=== PATIENT | female | born 1980 | race Caucasian/White ===

== ENCOUNTER 2020-07-11 13:41 | Outpatient (REF) | payer BC, SELFPAY ==
[2020-07-13 06:08] LABS: C. trachomatis RNA TMA NOT DETECTED (NOT DETECTED); N. gonorrhoeae RNA TMA NOT DETECTED (NOT DETECTED)
[2020-07-14 12:03] LABS: HPV mRNA E6/E7 rflx Not Detected (Not Detected)
== END 2020-07-11 13:42 | disposition home or self-care (01) ==
LOC: HO.LAB 13:41
PROVIDERS: PCP Internal Medicine; Visit Provider Advanced Practice Midwife
DX: Z12.4 Encounter for screening for malignant neoplasm of cervix (principal); Z20.2 Contact with and (suspected) exposure to infections with a predominantly sexual mode of transmission; I10 Essential (primary) hypertension
CPT/HCPCS: 87491; 87591; 87624; 88141; 88142

== ENCOUNTER → 2020-08-16 13:18 | Outpatient (BNVA) | payer BC, SELFPAY | PROVIDERS: Visit Provider Advanced Practice Midwife | DX: Z30.430 Encounter for insertion of intrauterine contraceptive device (principal) | CPT/HCPCS: 58300; 81025; J7298 ==

== ENCOUNTER 2020-11-16 15:45 | Outpatient (REF) | payer BC, SELFPAY ==
--- NOTE | ~2020-11-16 | MM_ITS ---
EXAMINATION: MM SCREENING DIGITAL BREAST TOMOSYNTHESIS, BILATERAL CLINICAL INFORMATION: Screening. Asymptomatic. No prior breast imaging. Age 40. No known family history breast cancer. The lifetime risk of breast cancer based on the Tyrer-Cuzick Model is 9%. COMPARISON: None (current study represents initial baseline exam). TECHNIQUE: Digital breast tomosynthesis is performed in both the craniocaudal and mediolateral oblique views along with computer-aided detection (CAD). Synthesized 2D images are generated from the tomosynthesis. FINDINGS: There are scattered areas of fibroglandular density (ACR BI-RADS breast composition Category b). The right breast is unremarkable. There is no mass or architectural abnormality. Neither breast shows abnormal calcifications. The axilla and skin contours are unremarkable. Left breast has 0.8 cm oval asymmetric density mid outer quadrant on CC tomography not clearly visualized on MLO view. There may be peripheral notched fatty hilus suggesting intramammary node. Patient will be recalled for additional imaging to further characterize. MM/MM tomosynthesis screening BI IMPRESSION: 1. Left: Oval asymmetric density mid outer quadrant under 1 cm, possibly intramammary node. 2. Right: No mammographic evidence of malignancy. ASSESSMENT: BI-RADS 0: Incomplete - Need Additional Imaging Evaluation RECOMMENDATION: 1. Additional views of the left breast (3-D spot CC, 3-D rolled CC). 2. Targeted ultrasound if warranted after review of the additional views. 3. Radiology department staff will contact the patient for additional imaging. This patient's information was entered into a reminder system with a target due date for their next mammogram.
== END 2020-11-16 15:46 | disposition home or self-care (01) ==
LOC: HO.MAMMO 15:45
PROVIDERS: Visit Provider Advanced Practice Midwife
DX: Z12.31 Encounter for screening mammogram for malignant neoplasm of breast (principal)
CPT/HCPCS: 77063; 77067

== ENCOUNTER 2020-11-25 10:47 | Outpatient (REF) | payer BC, SELFPAY ==
--- NOTE | ~2020-11-25 | US_ITS ---
EXAMINATION: US DIAGNOSTIC ULTRASOUND BREAST, LEFT CLINICAL INFORMATION: Density. COMPARISON: Mammography of same day and November 16, 2020. TECHNIQUE: Ultrasound of the breast is performed with real-time albarado scale imaging and color Doppler. FINDINGS: Targeted left breast ultrasound did not demonstrate any abnormal cystic or solid mass. No region of abnormal distal sound shadowing appreciated. Results are discussed with the patient at time of visit. US/US breast LT limited IMPRESSION: No mammographic or ultrasound evidence of malignancy. ASSESSMENT: BI-RADS 1: Negative RECOMMENDATION: Routine annual mammography screening due in 12 months. This patient's information was entered into a reminder system with a target due date for their next mammogram.
--- NOTE | ~2020-11-25 | MM_ITS ---
EXAMINATION: MM DIAGNOSTIC DIGITAL BREAST TOMOSYNTHESIS, LEFT CLINICAL INFORMATION: Left breast density laterally. COMPARISON: Mammography: 11/16/2020. TECHNIQUE: Digital breast tomosynthesis is performed. 2D images are generated from the tomosynthesis. The following views are obtained: Spot compression craniocaudal views also performed. Left craniocaudal rolled views also performed in full field projection. FINDINGS: There are scattered areas of fibroglandular density (ACR BI-RADS breast composition Category b). Additional views show no significant mass, architectural abnormality, or abnormal calcifications. Targeted left breast ultrasound did not demonstrate any abnormal cystic or solid mass. No region of abnormal distal sound shadowing appreciated. Results are discussed with the patient at time of visit. MM/MM tomosynthesis added views L IMPRESSION: No mammographic or ultrasound evidence of malignancy. ASSESSMENT: BI-RADS 1: Negative. RECOMMENDATION: Routine annual mammography screening due in 12 months. This patient's information was entered into a reminder system with a target due date for their next mammogram.
== END 2020-11-25 10:48 | disposition home or self-care (01) ==
LOC: HO.MAMMO 10:47
PROVIDERS: Visit Provider Advanced Practice Midwife
DX: R92.2 Inconclusive mammogram (principal)
CPT/HCPCS: 76642; 77061; 77065

== ENCOUNTER 2021-04-11 14:49 | Emergency (ER) | payer BC, SELFPAY ==
--- NOTE | 2021-04-11 | ECG_ITS ---
Test Reason : CHEST PAIN Blood Pressure : / mmHG Vent. Rate : 100 BPM Atrial Rate : 100 BPM P-R Int : 140 ms QRS Dur : 084 ms QT Int : 350 ms P-R-T Axes : 038 039 010 degrees QTc Int : 451 ms Normal sinus rhythm Normal ECG No previous ECGs available Referred By: Generic ED Physician Electronically Signed By:BRANDIE FLOWERS
[2021-04-11 14:58] VITALS: BP 168/103; PULSE 102; RESP 18; TEMP 36.9; O2SAT 98; BMI 46.5
[2021-04-11 15:27] LABS: MANUAL DIFF FLAG NO
[2021-04-11 15:30] LABS: Basophils Percent Auto 0.3 % (0-2); Eosinophils Absolute Auto 0.3 X10*3/uL (0.0-0.4); Eosinophils Percent Auto 3.6 % (0-4); Hematocrit 39.1 % (37-47); Hemoglobin 12.7 g/dl (12.0-16.0); Imm Gran Abs Auto 0.03 X10*3/uL (0.00-0.03); Imm Gran Pct Auto 0.3 % (0.0-0.4); Lymphocytes Percent Auto 23.7 % (20-40); Mean Corpuscular HGB Conc 32.5 g/dl (31.0-35.0); Mean Corpuscular Hemoglobin 26.8 pg (27.0-33.0); Mean Corpuscular Volume 82.7 fL (80-98); Mean Platelet Volume 10.1 fL (9.4-12.3); Monocytes Absolute Auto 0.5 X10*3/uL (0.1-1.2); Monocytes Percent Auto 5.6 % (2-11); Neutrophils Absolute Auto 5.7 X10*3/uL (2.0-8.3); Neutrophils Percent Auto 66.5 % (45-73); Platelet Count 300 X10*3/uL (160-400); Red Blood Count 4.73 X10*6/uL (4.20-5.50); Red Cell Distribution Width 13.8 % (11.0-16.0); White Blood Count 8.6 X10*3/uL (4.8-10.8)
[2021-04-11 15:43] LABS: Anion Gap 11 (12-20); Blood Urea Nitrogen 11 mg/dL (9-16); Calcium 9.6 mg/dL (8.4-10.2); Carbon Dioxide 29 mmol/L (22-29); Chloride 103 mmol/L (96-108); Creatinine Clr Calc Pharmacy 116.6; Estimated Glomerular Filt Rate > 60; Glucose Random 180 mg/dL (60-115); Potassium 4.3 mmol/L (3.3-5.1); Sodium 139 mmol/L (135-145)
[2021-04-11 15:46] LABS: COVID-19 Test Negative (Negative); IDNOW Serial# 08D9AD1C
[2021-04-11 15:49] LABS: Troponin-I High Sensitivity < 3.5 ng/L (<3.5-17.0)
--- NOTE | 2021-04-11 16:29 | ED_ITS ---
HPI - Chest Pain General Chief Complaint: Chest Pain Stated Complaint: chest pain Time Seen by Provider: 04/11/21 15:58 Source: patient and family History of Present Illness HPI narrative: Patient with a history of hypertension on lisinopril presents complaining of 2 episodes of chest pain. One was Saturday night the other was prior to arrival. Each episode lasted approximately 15 minutes and resolved spontaneously. She has no pain at the moment. She describes the pain as sharp in the anterior goes through to her back. She gets sweaty and slightly nauseous with it. It is worse with lying back flat. It improved spontaneously. No precipitating factors that she can think of No recent changes in activity medications or stressors. No recent illnesses or cough. She says she often misses doses of her lisinopril because she forgets but for the last week she has been consistent. There have been no missed doses: Side when the chest pain episodes She called her PCP office recommended she come to the emergency department. Cardiac risk factors of obesity and hypertension. She denies history of high cholesterol, diabetes, family history. No personal or family history of thromboembolic disease other than a paternal grandmother possibly. No recent travels injury surgeries or other thromboembolic risk factors Denies history of GERD or significant nonsteroidal anti-inflammatory use Related Data Home Medications Medication Instructions Recorded Confirmed lisinopril 20 1 tab PO DAILY 07/11/20 mg-hydrochlorothiazide 12.5 mg tablet Allergies Allergy/AdvReac Type Severity Reaction Status Date / Time No Known Allergies Allergy Verified 04/11/21 14:58 Review of Systems Constitutional: Constitutional: Denies fever(s) and Denies headache(s) ENT: Denies headache(s) Cardiovascular: Comments: Chest pain Respiratory: Comments: No significant dyspnea Gastrointestinal: Comments: No abdominal pain Musculoskeletal: Comments: No leg swelling or calf pain Neurologic: Denies headache(s) Comments: No weakness Psychiatric: Comments: No significant stressors or anxiety [facility] Past Medical History Medical History History of severe pre-eclampsia HTN (hypertension) Surgical History Hx of section Family History Family History Mother Epilepsy Father HTN (hypertension) Maternal Grandmother Alzheimer disease Social History Social History Alcohol intake: current Alcohol intake frequency: holidays/special occasions only Advance Directives: No Advance Directives Information Provided: No Patient : No Sexual orientation: Straight/Heterosexual Gender identity: Female Physical Exam Vital Signs: Vital Signs: Last Vital Signs Temp 98.4 F 04/11/21 14:58 Pulse 102 H 04/11/21 14:58 Resp 18 04/11/21 14:58 BP 168/103 H 04/11/21 14:58 Pulse Ox 98 04/11/21 14:58 Body Mass Index 46.5 Const: Other: Awake alert in no acute distress with stable vital signs Chest: Other: Nontender chest and thorax Resp: Other: Clear and equal bilaterally without wheezes rales or rhonchi Cardio: Other: Regular rate rhythm without murmurs rubs or gallops GI: Other: Soft nontender nondistended with normoactive bowel sounds Skin: Other: Warm pink and dry without rash Neuro: Other: Nonfocal Course Course Course Narrative: Chest pain Acute coronary syndrome Unstable angina Musculoskeletal chest pain Gastroesophageal reflux disease EKG normal sinus rhythm without ischemia Lab work is all normal including high sensitivity troponin Heart score is 1 She has no risk factors for thromboembolic disease Safe for discharge home to follow-up with primary care physician. MDM - Chest Pain Lab Data Result diagrams: 04/11/21 15:21 04/11/21 15:21 Labs: Lab Results 04/11/21 04/11/21 04/11/21 Range/Units 15:21 15:21 15:21 WBC 8.6 (4.8-10.8) X10*3/uL RBC 4.73 (4.20-5.50) X10*6/uL Hgb 12.7 (12.0-16.0) g/dl Hct 39.1 (37-47) % MCV 82.7 (80-98) fL MCH 26.8 L (27.0-33.0) pg MCHC 32.5 (31.0-35.0) g/dl RDW 13.8 (11.0-16.0) % Plt Count 300 (160-400) X10*3/uL MPV 10.1 (9.4-12.3) fL Immature Gran % (Auto) 0.3 (0.0-0.4) % Neut % (Auto) 66.5 (45-73) % Lymph % (Auto) 23.7 (20-40) % Catron % (Auto) 5.6 (2-11) % Eos % (Auto) 3.6 (0-4) % Baso % (Auto) 0.3 (0-2) % Lymph # (Auto) 2.0 (1.2-4.9) X10*3/uL Catron # (Auto) 0.5 (0.1-1.2) X10*3/uL Eos # (Auto) 0.3 (0.0-0.4) X10*3/uL Baso # (Auto) 0.0 (0.0-0.2) X10*3/uL Abs Immat Gran (auto) 0.03 (0.00-0.03) X10*3/uL Absolute Neuts (auto) 5.7 (2.0-8.3) X10*3/uL Absolute Nucleated RBC 0.000 (0.0-0.012) X10*3/uL Nucleated RBC % (auto) 0.0 (0.0-0.2) /100WBC Sodium 139 (135-145) mmol/L Potassium 4.3 (3.3-5.1) mmol/L Chloride 103 (96-108) mmol/L Carbon Dioxide 29 (22-29) mmol/L Anion Gap 11 L (12-20) BUN 11 (9-16) mg/dL Creatinine 0.86 (0.5-1.4) mg/dL Estim Creat Clear Calc 116.6 Estimated GFR > 60 Random Glucose 180 H (60-115) mg/dL Calcium 9.6 (8.4-10.2) mg/dL Troponin I High Sens < 3.5 (<3.5-17.0) ng/L COVID-19 ([facility]) (Negative) COVID-19 Clin Com 04/11/21 Range/Units 15:22 WBC (4.8-10.8) X10*3/uL RBC (4.20-5.50) X10*6/uL Hgb (12.0-16.0) g/dl Hct (37-47) % MCV (80-98) fL MCH (27.0-33.0) pg MCHC (31.0-35.0) g/dl RDW (11.0-16.0) % Plt Count (160-400) X10*3/uL MPV (9.4-12.3) fL Immature Gran % (Auto) (0.0-0.4) % Neut % (Auto) (45-73) % Lymph % (Auto) (20-40) % Catron % (Auto) (2-11) % Eos % (Auto) (0-4) % Baso % (Auto) (0-2) % Lymph # (Auto) (1.2-4.9) X10*3/uL Catron # (Auto) (0.1-1.2) X10*3/uL Eos # (Auto) (0.0-0.4) X10*3/uL Baso # (Auto) (0.0-0.2) X10*3/uL Abs Immat Gran (auto) (0.00-0.03) X10*3/uL Absolute Neuts (auto) (2.0-8.3) X10*3/uL Absolute Nucleated RBC (0.0-0.012) X10*3/uL Nucleated RBC % (auto) (0.0-0.2) /100WBC Sodium (135-145) mmol/L Potassium (3.3-5.1) mmol/L Chloride (96-108) mmol/L Carbon Dioxide (22-29) mmol/L Anion Gap (12-20) BUN (9-16) mg/dL Creatinine (0.5-1.4) mg/dL Estim Creat Clear Calc Estimated GFR Random Glucose (60-115) mg/dL Calcium (8.4-10.2) mg/dL Troponin I High Sens (<3.5-17.0) ng/L COVID-19 ([facility]) Negative (Negative) COVID-19 Clin Com See Note Scores Heart Score History: -0- slightly suspicious ECG: -0- normal Age: -0- < or = 45 Risk factory: -1- 1 or 2 risk factors Troponin: -0- < or = normal limit Score: 1 Risk: 1.7% Discharge Plan Discharge Clinical Impression: Atypical chest pain Hypertension Qualifiers: Hypertension type: primary hypertension Qualified Code(s): I10 - Essential (primary) hypertension Patient Disposition: Home, Self-Care Instructions: Chest Wall Pain (ED) Additional Instructions: Call your primary care physician for follow-up Also be sure to take your lisinopril daily. Take your blood pressure twice daily and record the readings and bring them with due to the next primary care visit Prescriptions: No Action lisinopril-hydrochlorothiazide 20-12.5 mg tablet 1 tab PO DAILY RF: 0
[2021-04-11 16:56] VITALS: BP 148/78; PULSE 78; RESP 14
== END 2021-04-11 17:00 | disposition home or self-care (01) ==
PROVIDERS: Emergency Provider Emergency Medicine; PCP Internal Medicine
DX: R07.89 Other chest pain (principal); I10 Essential (primary) hypertension; Z79.899 Other long term (current) drug therapy; Z20.822 Contact with and (suspected) exposure to COVID-19
CPT/HCPCS: 36415; 80048; 84484; 85025; 87635; 93005; 99283; 99285

== ENCOUNTER 2021-07-03 10:22 | Outpatient (REF) | payer BC, SELFPAY ==
[2021-07-03 10:24] LABS: MANUAL DIFF FLAG NO
[2021-07-03 11:18] LABS: Basophils Percent Auto 0.4 % (0-2); Eosinophils Absolute Auto 0.2 X10*3/uL (0.0-0.4); Eosinophils Percent Auto 2.7 % (0-4); Hematocrit 41.4 % (37.0-47.0); Hemoglobin 13.3 g/dl (12.0-16.0); Imm Gran Abs Auto 0.03 X10*3/uL (0.00-0.03); Imm Gran Pct Auto 0.4 % (0.0-0.4); Lymphocytes Absolute Auto 2.3 X10*3/uL (1.2-4.9); Lymphocytes Percent Auto 29.2 % (20-40); Mean Corpuscular HGB Conc 32.1 g/dl (31.0-35.0); Mean Corpuscular Volume 84.1 fL (80.0-98.0); Mean Platelet Volume 10.4 fL (9.4-12.3); Monocytes Absolute Auto 0.4 X10*3/uL (0.1-1.2); Monocytes Percent Auto 5.6 % (2-11); Neutrophils Absolute Auto 4.8 x10*3/uL (2.0-8.3); Neutrophils Percent Auto 61.7 % (45-73); Platelet Count 312 X10*3/uL (160-400); Red Blood Count 4.92 X10*6/uL (4.20-5.50); White Blood Count 7.7 X10*3/uL (4.8-10.8)
[2021-07-03 11:23] LABS: Appearance Urine HAZY; Color Urine YELLOW; Glucose Urine UA NEG (NEG); Leukocyte Esterase Urine NEG (NEG); Nitrite Urine NEG (NEG); Specific Gravity - Urine >= 1.030 (1.005-1.025); Urine Blood NEG (NEG); Urine Ketones NEG (NEG); Urine Protein NEG (NEG-TRACE)
[2021-07-03 11:31] LABS: Alanine Aminotransferase 29 U/L (0-31); Alkaline Phosphatase 56 U/L (39-117); Anion Gap 11 (12-20); Aspartate Amino Transferase 18 U/L (5-31); Bilirubin Total 0.6 mg/dL (0.0-1.0); Blood Urea Nitrogen 11 mg/dL (9-16); Calcium 9.3 mg/dL (8.4-10.2); Carbon Dioxide 28 mmol/L (22-29); Chloride 105 mmol/L (96-108); Cholesterol 172 mg/dL; Estimated Glomerular Filt Rate > 60; Glucose Fasting 123 mg/dL (60-99); HDL Cholesterol 32 mg/dL; LDL Cholesterol Calculated 118 mg/dl; Potassium 4.6 mmol/L (3.3-5.1); Sodium 139 mmol/L (135-145); Total Protein 6.5 g/dL (6.5-8.0); Triglycerides 114 mg/dL
[2021-07-03 11:32] LABS: Estimated Average Glucose 143 mg/dL; Hemoglobin A1c % 6.6 %
[2021-07-03 11:52] LABS: Creatinine Urine 166.27 mg/dL; Microalbum/Creatinine Ratio Ur 13.2 ug/mg cr
== END 2021-07-03 10:23 | disposition home or self-care (01) ==
LOC: HO.LNP 10:22
PROVIDERS: PCP Internal Medicine; Visit Provider Internal Medicine
DX: Z00.00 Encounter for general adult medical examination without abnormal findings (principal); I10 Essential (primary) hypertension; R73.09 Other abnormal glucose
CPT/HCPCS: 80053; 80061; 81003; 82043; 83036; 85025

== ENCOUNTER 2022-07-25 13:10 | Emergency (ER) | payer BC, SELFPAY ==
--- NOTE | ~2022-07-25 | XR_ITS ---
EXAMINATION: XR CHEST CLINICAL INFORMATION: Shortness of breath, cough, Covid COMPARISON: None TECHNIQUE: 2 views of the chest were obtained. FINDINGS: The lungs are clear. No airspace consolidation, pleural effusion, or pneumothorax. The cardiomediastinal silhouette is within normal limits. No acute osseous injury. XR/XR chest 2V IMPRESSION: No acute pulmonary disease.
[2022-07-25 13:26] VITALS: BP 218/109; PULSE 115; RESP 19; TEMP 36.7; O2SAT 98; BMI 46.5
--- NOTE | 2022-07-25 13:27 | ED_ITS ---
HPI - SOB/Dyspnea General Chief Complaint: General Medical <JOE Jorge - Last Filed: 07/25/22 15:53> Stated Complaint: covid symptoms <JOE Jorge - Last Filed: 07/25/22 15:53> Time Seen by Provider: 07/25/22 14:49 <JOE Jorge - Last Filed: 07/25/22 15:53> Source: patient <JOE Saenz Last Filed: 07/25/22 16:24> Mode of arrival: ambulatory <JOE Saenz - Last Filed: 07/25/22 16:24> Limitations: no limitations <JOE Saenz Last Filed: 07/25/22 16:24> History of Present Illness HPI Narrative: Patient is a 42 year old assigned female at with a history of childhood asthma and recent COVID-19 diagnosis presenting to the emergency department today with a cough. Patient states that she was diagnosed with COVID- 19 this morning and she has been having a continued cough. Patient denies any dizziness, lightheadedness, abdominal pain, nausea, vomiting, fever, chills, blurry vision, double vision, loss of vision, chest pain, difficulty breathing, shortness of breath, back pain, night sweats, pain with urination, increased urinary frequency, increased urinary urgency, blood in her urine or stool, syncope or a near syncopal episode, recent trauma or falls, bowel incontinence, bladder incontinence, bowel retention, bladder retention, or any other complaints at this time. <JOE Saenz - Last Filed: 07/25/22 16:24> MD elicited complaint: cough <JOE Saenz - Last Filed: 07/25/22 16:24> Context: recent illness <JOE Saenz Last Filed: 07/25/22 16:24> Severity: mild <JOE Saenz Last Filed: 07/25/22 16:24> Exacerbating factors: nothing <JOE Saenz Last Filed: 07/25/22 16:24> Relieving factors: nothing <JOE Saenz Last Filed: 07/25/22 16:24> Known history of: asthma <JOE Saenz Last Filed: 07/25/22 16:24> Associated symptoms: denies other symptoms <JOE Saenz - Last Filed: 07/25/22 16:24> Treatment prior to arrival: none <JOE Saenz - Last Filed: 07/25/22 16:24> Related Data Home oxygen amount: none <JOE Saenz - Last Filed: 07/25/22 16:24> Home Medications: Home Medications Medication Instructions Recorded Confirmed lisinopril 20 1 tab PO DAILY 07/11/20 mg-hydrochlorothiazide 12.5 mg tablet Previous Rx's Medication Instructions Recorded albuterol sulfate 90 mcg/actuation 1 inh inhalation QID #6.7 grams 07/25/22 aerosol inhaler benzonatate 100 mg capsule 100 mg PO BID PRN cough 7 days #14 07/25/22 caps prednisone 20 mg tablet 20 mg PO DAILY 7 days #7 tabs 07/25/22 <JOE Jorge - Last Filed: 07/25/22 15:53> Allergies/Adverse Reactions: Allergies Allergy/AdvReac Type Severity Reaction Status Date / Time No Known Allergies Allergy Verified 07/25/22 13:29 <JOE Jorge - Last Filed: 07/25/22 15:53> Review of Systems Constitutional: Constitutional: Reports no additional constitutional complaints, Denies chills, Denies fever(s) and Denies night sweats <JOE Saenz - Last Filed: 07/25/22 16:24> Eyes: Eyes: Reports no additional eye complaints, Denies blurry vision, Denies change in vision, Denies diplopia, Denies eye discharge, Denies loss of vision and Denies eye pain <JOE Saenz - Last Filed: 07/25/22 16:24> ENT: Denies dizziness <JOE Saenz - Last Filed: 07/25/22 16:24> Cardiovascular: Cardiovascular: Reports no additional cardiovascular complaints, Denies chest pain, Denies lightheadedness, Denies Loss of Consciousness and Denies dyspnea <JOE Saenz Last Filed: 07/25/22 16:24> Respiratory: Respiratory: Reports no additional respiratory complaints, Reports cough and Denies dyspnea <JOE Saenz - Last Filed: 07/25/22 16:24> Gastrointestinal: Gastrointestinal: Reports no additional gastrointestinal complaints, Denies abdominal pain, Denies melena, Denies hematochezia, Denies change in bowel habits and Denies change in stool character <JOE Saenz - Last Filed: 07/25/22 16:24> Genitourinary: Genitourinary: Denies hematuria, Denies urinary frequency, Denies dysuria, Denies urinary incontinence, Denies urinary hesitancy and Denies urinary urgency <JOE Saenz - Last Filed: 07/25/22 16:24> Musculoskeletal: Musculoskeletal: Reports no additional musculoskeletal complaints, Denies numbness and Denies tingling <JOE Saenz - Last Filed: 07/25/22 16:24> Neurologic: Denies dizziness, Denies loss of vision, Denies numbness and Denies tingling <JOE Saenz - Last Filed: 07/25/22 16:24> Psychiatric: Psychiatric: Reports no additional psychiatric complaints <JOE Saenz - Last Filed: 07/25/22 16:24> Endocrine: Endocrine: Reports no additional endocrine complaints <JOE Saenz - Last Filed: 07/25/22 16:24> Hematologic/Lymphatic: Hematologic/Lymphatic: Reports no additional hematologic/lymphatic complaints <JOE Saenz - Last Filed: 07/25/22 16:24> Allergic/Immunologic: Allergic/Immunologic: Reports no additional allergic/immunologic complaints <JOE Saenz - Last Filed: 07/25/22 16:24> PMF Past Medical History Attestation statement: The following information was validated with the patient. <JOE Saenz - Last Filed: 07/25/22 16:24> Source: old records reviewed and nursing notes reviewed <JOE Saenz - Last Filed: 07/25/22 16:24> Medical History: Medical History History of severe pre-eclampsia HTN (hypertension) <JOE Jorge - Last Filed: 07/25/22 15:53> Surgical History: Surgical History Hx of section <JOE Jorge - Last Filed: 07/25/22 15:53> Family History Family History: Family History Mother Epilepsy Father HTN (hypertension) Maternal Grandmother Alzheimer disease <JOE Jorge - Last Filed: 07/25/22 15:53> Social History Social History: Social History Alcohol intake: current Alcohol intake frequency: a few times a month Smoked in Last 30 Days: No Advance Directives: No Patient : No Sexual orientation: Straight/Heterosexual Gender identity: Female <JOE Jorge - Last Filed: 07/25/22 15:53> Physical Exam Vital Signs: Vital Signs: Last Vital Signs Temp 98.1 F 07/25/22 13:26 Pulse 115 H 07/25/22 13:26 Resp 19 07/25/22 13:26 BP 218/109 H 07/25/22 13:26 Pulse Ox 98 07/25/22 13:26 O2 Del Method 07/25/22 13:26 BMI result Body Mass Index 46.5 <JOE Jorge - Last Filed: 07/25/22 15:53> Vital Signs: Last Vital Signs Temp 98.1 F 07/25/22 13:26 Pulse 115 H 07/25/22 13:26 Resp 19 07/25/22 13:26 BP 218/109 H 07/25/22 13:26 Pulse Ox 98 07/25/22 13:26 O2 Del Method 07/25/22 13:26 BMI result Body Mass Index 46.5 <JOE Saenz - Last Filed: 07/25/22 16:24> Const: General: cooperative, no acute distress, alert and awake <JOE Saenz - Last Filed: 07/25/22 16:24> Nutritional Appearance: well nourished <JOE Saenz - Last Filed: 07/25/22 16:24> Orientation/consciousness: patient oriented x3 <JOE Saenz - Last Filed: 07/25/22 16:24> Limitations: no limitations <JOE Saenz - Last Filed: 07/25/22 16:24> HEENT: Head: Yes normal to inspection and Yes atraumatic <Anali Nugentavelina PA - Last Filed: 07/25/22 16:24> Ears: hearing grossly normal bilaterally and external ears normal <Anali Nugentavelina PA - Last Filed: 07/25/22 16:24> General nose exam: Normal external nose present, no nasal discharge noted and no epistaxis <Anali Nugentavelina PA - Last Filed: 07/25/22 16:24> Face and sinus: Yes normal facial exam, No abrasion and No laceration <Anali Nugentavelina PA - Last Filed: 07/25/22 16:24> Mouth: Normal oral and palatal mucosa present, no drooling and no muffled voice <Analibright Nugentavelina PA - Last Filed: 07/25/22 16:24> Eyes: General: appearance normal, both eyes and all related structures <Analibright Nugentavelina ME - Last Filed: 07/25/22 16:24> Periorbital: periorbital findings normal <Analibright Nugentavelina PA - Last Filed: 07/25/22 16:24> Eyelids: Yes eyelids normal <Anali Nugentavelina PA - Last Filed: 07/25/22 16:24> Conjunctivae: conjunctivae normal <Analibright Nugentavelina PA - Last Filed: 07/25/22 16:24> Pupils: Equal, round and reactive pupils present <Anali Nugentavelina PA - Last Filed: 07/25/22 16:24> EOM: EOMs intact bilaterally <Anali Salcido ME - Last Filed: 07/25/22 16:24> Neck: Neck: Yes normal visual inspection, Yes full ROM and Yes no lymphadenopathy <Anali Nugentavelina PA - Last Filed: 07/25/22 16:24> Chest: Chest palpation & inspection: normal inspection of the chest <Anali Salcido PA - Last Filed: 07/25/22 16:24> Resp: Effort & Inspection: normal respiratory effort and able to speak in complete sentences <Anali Salcido PA - Last Filed: 07/25/22 16:24> Auscultation: clear to auscultation bilaterally <Anali Salcido PA - Last Filed: 07/25/22 16:24> Cardio: Rate: regular rate <Anali Salcido PA - Last Filed: 07/25/22 16:24> Rhythm: regular rhythm <Anali Salcido PA - Last Filed: 07/25/22 16:24> GI: Inspection: Yes normal to inspection <Anali Salcido PA - Last Filed: 07/25/22 16:24> Palpation (GI): Soft to palpation, not firm, nontender, no guarding and not rigid <Anali Salcido PA - Last Filed: 07/25/22 16:24> Neuro: General: patient oriented x3 and moves all extremities <Anali Salcido PA - Last Filed: 07/25/22 16:24> Cranial nerves: Yes Equal, round and reactive pupils present <Anlai Salcido PA - Last Filed: 07/25/22 16:24> Cognition (Neuro): normal cognition <Anali Salcido PA - Last Filed: 07/25/22 16:24> Motor exam (neuro): 5/5 motor strength present throughout <Anali Salcido PA - Last Filed: 07/25/22 16:24> Sensory Exam: Normal double simultaneous stimulation for sensation <Anali Salcido PA - Last Filed: 07/25/22 16:24> Coordination: [id number] test normal <Anali Salcido PA - Last Filed: 07/25/22 16:24> Extrem: General: Yes normal to inspection, Yes full ROM and Yes capillary refill normal <Anali Nugentavelina PA - Last Filed: 07/25/22 16:24> Psych: Appearance: grossly normal <Anali Nugentavelina PA - Last Filed: 07/25/22 16:24> Mental Status: mental status grossly normal <Anali SalcidoJOE - Last Filed: 07/25/22 16:24> Affect: normal affect <Anali NugentJOE quan - Last Filed: 07/25/22 16:24> Attitude: cooperative <Anali Nugentavelina PA - Last Filed: 07/25/22 16:24> Thought process: Normal thought process present <Analibright NugentJOE quan - Last Filed: 07/25/22 16:24> Thought content: Normal thought content present <Anali JOE Salcido - Last Filed: 07/25/22 16:24> Insight: Good insight present (Psych) <JOE Saenz Last Filed: 07/25/22 16:24> Course Course Course Narrative: RME - 42 yo female with history of HTN (noncompliant with meds) presents to the ER with worsening cough and SOB, tested positive for COVID today. Called PCP for SOB and told to come to the ER. Back and chest pain due to coughing. SpO2 98% in triage but tachycardic 110s and hypertensive 210/100s. CXR, EKG and labs ordered. <JOE Jorge - Last Filed: 07/25/22 15:53> Medical Decision Making Medical Decision Making MDM Narrative: Patient is a 42 year old assigned female at with a history of childhood asthma presenting to the emergency department today with a cough and COVID-19 diagnosis. Patient's physical exam was unremarkable. Patient's blood work was unremarkable. Patient's EKG was unremarkable. Patient's chest x-ray showed no acute process. Patient's blood pressure was elevated however, the patient does not have any HTN symptoms. I recommended the patient keep a blood pressure diary and follow up with her PCP. I explained my physical exam findings as well as all test results to the patient. I answered all questions asked by the patient. I stressed the importance of the patient taking her medication as prescribed. I stressed the importance of the patient following up with her primary care provider. I stressed the importance of the patient returning to the emergency department immediately if her symptoms were to worsen or if she were to develop any dizziness, shortness of breath, difficulty breathing, chest pain, blurry vision, loss of vision, nausea, vomiting, abdominal pain, fever, chills, back pain, or any other complaints. Patient verbalized agreement and understanding with this treatment plan and discharge. <JOE Saenz Last Filed: 07/25/22 16:24> Differential Diagnosis Differential Diagnoses: The differential diagnosis associated with the presentation includes <JOE Saenz Last Filed: 07/25/22 16:24> COVID-19, cough <JOE Saenz Last Filed: 07/25/22 16:24> Lab Data MDM Lab Attestation statement: I reviewed the patient's lab results. <JOE Saenz Filed: 07/25/22 16:24> Result Diagrams: 07/25/22 13:41 07/25/22 13:41 <JOE Jorge - Last Filed: 07/25/22 15:53> Labs: Lab Results 07/25/22 07/25/22 07/25/22 Range/Units 13:41 13:41 13:41 WBC 6.5 (4.8-10.8) X10*3/uL RBC 4.90 (4.20-5.50) X10*6/uL Hgb 13.2 (12.0-16.0) g/dl Hct 39.4 (37.0-47.0) % MCV 80.4 (80.0-98.0) fL MCH 26.9 L (27.0-33.0) pg MCHC 33.5 (31.0-35.0) g/dl RDW 13.5 (11.0-16.0) % Plt Count 279 (160-400) X10*3/uL MPV 9.5 (9.4-12.3) fL Immature Gran % (Auto) 0.2 (0.0-0.4) % Neut % (Auto) 76.6 H (45-73) % Lymph % (Auto) 13.8 L (20-40) % [place] % (Auto) 8.1 (2-11) % Eos % (Auto) 0.8 (0-4) % Baso % (Auto) 0.5 (0-2) % Lymph # (Auto) 0.9 L (1.2-4.9) X10*3/uL [place] # (Auto) 0.5 (0.1-1.2) X10*3/uL Eos # (Auto) 0.1 (0.0-0.4) X10*3/uL Baso # (Auto) 0.0 (0.0-0.2) X10*3/uL Abs Immat Gran (auto) 0.01 (0.00-0.03) X10*3/uL Absolute Neuts (auto) 5.0 (2.0-8.3) x10*3/uL Absolute Nucleated RBC 0.000 (0.0-0.012) X10*3/uL Nucleated RBC % (auto) 0.0 (0.0-0.2) /100WBC PT 11.9 (10.0-13.1) SEC INR 1.0 (0.9-1.1) APTT 30.8 (26.0-36.4) SEC Sodium 138 (135-145) mmol/L Potassium 4.3 (3.3-5.1) mmol/L Chloride 103 (96-108) mmol/L Carbon Dioxide 26 (22-29) mmol/L Anion Gap 13 (12-20) BUN 7 L (9-16) mg/dL Creatinine 0.77 (0.5-1.4) mg/dL Estim Creat Clear Calc 127.7 Estimated GFR > 60 Random Glucose 133 H (60-115) mg/dL Calcium 9.4 (8.4-10.2) mg/dL Magnesium 1.8 (1.6-2.6) mg/dL Total Bilirubin 0.7 (0.0-1.0) mg/dL Direct Bilirubin 0.2 (0.0-0.5) mg/dL AST 34 H (5-31) U/L ALT 42 H (0-31) U/L Alkaline Phosphatase 73 (39-117) U/L Troponin I High Sens (<3.5-17.0) ng/L C-Reactive Protein 3.86 H (< or = 0.50) mg/dL B-Natriuretic Peptide (<100) pg/mL Total Protein 7.1 (6.5-8.0) g/dL Albumin 4.3 (3.5-5.0) g/dL COVID-19 ([facility]) (Negative) COVID-19 Clin Com 07/25/22 07/25/22 07/25/22 Range/Units 13:41 13:41 13:41 WBC (4.8-10.8) X10*3/uL RBC (4.20-5.50) X10*6/uL Hgb (12.0-16.0) g/dl Hct (37.0-47.0) % MCV (80.0-98.0) fL MCH (27.0-33.0) pg MCHC (31.0-35.0) g/dl RDW (11.0-16.0) % Plt Count (160-400) X10*3/uL MPV (9.4-12.3) fL Immature Gran % (Auto) (0.0-0.4) % Neut % (Auto) (45-73) % Lymph % (Auto) (20-40) % [place] % (Auto) (2-11) % Eos % (Auto) (0-4) % Baso % (Auto) (0-2) % Lymph # (Auto) (1.2-4.9) X10*3/uL [place] # (Auto) (0.1-1.2) X10*3/uL Eos # (Auto) (0.0-0.4) X10*3/uL Baso # (Auto) (0.0-0.2) X10*3/uL Abs Immat Gran (auto) (0.00-0.03) X10*3/uL Absolute Neuts (auto) (2.0-8.3) x10*3/uL Absolute Nucleated RBC (0.0-0.012) X10*3/uL Nucleated RBC % (auto) (0.0-0.2) /100WBC PT (10.0-13.1) SEC INR (0.9-1.1) APTT (26.0-36.4) SEC Sodium (135-145) mmol/L Potassium (3.3-5.1) mmol/L Chloride (96-108) mmol/L Carbon Dioxide (22-29) mmol/L Anion Gap (12-20) BUN (9-16) mg/dL Creatinine (0.5-1.4) mg/dL Estim Creat Clear Calc Estimated GFR Random Glucose (60-115) mg/dL Calcium (8.4-10.2) mg/dL Magnesium (1.6-2.6) mg/dL Total Bilirubin (0.0-1.0) mg/dL Direct Bilirubin (0.0-0.5) mg/dL AST (5-31) U/L ALT (0-31) U/L Alkaline Phosphatase (39-117) U/L Troponin I High Sens < 3.5 (<3.5-17.0) ng/L C-Reactive Protein (< or = 0.50) mg/dL B-Natriuretic Peptide < 10 (<100) pg/mL Total Protein (6.5-8.0) g/dL Albumin (3.5-5.0) g/dL COVID-19 ([facility]) Positive A (Negative) COVID-19 Clin Com See Note <JOE Jorge - Last Filed: 07/25/22 15:53> Lab Results 07/25/22 07/25/22 07/25/22 Range/Units 13:41 13:41 13:41 WBC 6.5 (4.8-10.8) X10*3/uL RBC 4.90 (4.20-5.50) X10*6/uL Hgb 13.2 (12.0-16.0) g/dl Hct 39.4 (37.0-47.0) % MCV 80.4 (80.0-98.0) fL MCH 26.9 L (27.0-33.0) pg MCHC 33.5 (31.0-35.0) g/dl RDW 13.5 (11.0-16.0) % Plt Count 279 (160-400) X10*3/uL MPV 9.5 (9.4-12.3) fL Immature Gran % (Auto) 0.2 (0.0-0.4) % Neut % (Auto) 76.6 H (45-73) % Lymph % (Auto) 13.8 L (20-40) % [place] % (Auto) 8.1 (2-11) % Eos % (Auto) 0.8 (0-4) % Baso % (Auto) 0.5 (0-2) % Lymph # (Auto) 0.9 L (1.2-4.9) X10*3/uL [place] # (Auto) 0.5 (0.1-1.2) X10*3/uL Eos # (Auto) 0.1 (0.0-0.4) X10*3/uL Baso # (Auto) 0.0 (0.0-0.2) X10*3/uL Abs Immat Gran (auto) 0.01 (0.00-0.03) X10*3/uL Absolute Neuts (auto) 5.0 (2.0-8.3) x10*3/uL Absolute Nucleated RBC 0.000 (0.0-0.012) X10*3/uL Nucleated RBC % (auto) 0.0 (0.0-0.2) /100WBC PT 11.9 (10.0-13.1) SEC INR 1.0 (0.9-1.1) APTT 30.8 (26.0-36.4) SEC Sodium 138 (135-145) mmol/L Potassium 4.3 (3.3-5.1) mmol/L Chloride 103 (96-108) mmol/L Carbon Dioxide 26 (22-29) mmol/L Anion Gap 13 (12-20) BUN 7 L (9-16) mg/dL Creatinine 0.77 (0.5-1.4) mg/dL Estim Creat Clear Calc 127.7 Estimated GFR > 60 Random Glucose 133 H (60-115) mg/dL Calcium 9.4 (8.4-10.2) mg/dL Magnesium 1.8 (1.6-2.6) mg/dL Total Bilirubin 0.7 (0.0-1.0) mg/dL Direct Bilirubin 0.2 (0.0-0.5) mg/dL AST 34 H (5-31) U/L ALT 42 H (0-31) U/L Alkaline Phosphatase 73 (39-117) U/L Troponin I High Sens (<3.5-17.0) ng/L C-Reactive Protein 3.86 H (< or = 0.50) mg/dL B-Natriuretic Peptide (<100) pg/mL Total Protein 7.1 (6.5-8.0) g/dL Albumin 4.3 (3.5-5.0) g/dL COVID-19 ([facility]) (Negative) COVID-19 Clin Com 07/25/22 07/25/22 07/25/22 Range/Units 13:41 13:41 13:41 WBC (4.8-10.8) X10*3/uL RBC (4.20-5.50) X10*6/uL Hgb (12.0-16.0) g/dl Hct (37.0-47.0) % MCV (80.0-98.0) fL MCH (27.0-33.0) pg MCHC (31.0-35.0) g/dl RDW (11.0-16.0) % Plt Count (160-400) X10*3/uL MPV (9.4-12.3) fL Immature Gran % (Auto) (0.0-0.4) % Neut % (Auto) (45-73) % Lymph % (Auto) (20-40) % [place] % (Auto) (2-11) % Eos % (Auto) (0-4) % Baso % (Auto) (0-2) % Lymph # (Auto) (1.2-4.9) X10*3/uL [place] # (Auto) (0.1-1.2) X10*3/uL Eos # (Auto) (0.0-0.4) X10*3/uL Baso # (Auto) (0.0-0.2) X10*3/uL Abs Immat Gran (auto) (0.00-0.03) X10*3/uL Absolute Neuts (auto) (2.0-8.3) x10*3/uL Absolute Nucleated RBC (0.0-0.012) X10*3/uL Nucleated RBC % (auto) (0.0-0.2) /100WBC PT (10.0-13.1) SEC INR (0.9-1.1) APTT (26.0-36.4) SEC Sodium (135-145) mmol/L Potassium (3.3-5.1) mmol/L Chloride (96-108) mmol/L Carbon Dioxide (22-29) mmol/L Anion Gap (12-20) BUN (9-16) mg/dL Creatinine (0.5-1.4) mg/dL Estim Creat Clear Calc Estimated GFR Random Glucose (60-115) mg/dL Calcium (8.4-10.2) mg/dL Magnesium (1.6-2.6) mg/dL Total Bilirubin (0.0-1.0) mg/dL Direct Bilirubin (0.0-0.5) mg/dL AST (5-31) U/L ALT (0-31) U/L Alkaline Phosphatase (39-117) U/L Troponin I High Sens < 3.5 (<3.5-17.0) ng/L C-Reactive Protein (< or = 0.50) mg/dL B-Natriuretic Peptide < 10 (<100) pg/mL Total Protein (6.5-8.0) g/dL Albumin (3.5-5.0) g/dL COVID-19 ([facility]) Positive A (Negative) COVID-19 Clin Com See Note <JOE Saenz Last Filed: 07/25/22 16:24> Independent Interpretation I performed an independent interpretation of an: EKG <JOE Saenz Last Filed: 07/25/22 16:24> Interpretation: Vent. Rate: 113 BPM ? ? Atrial Rate: 113 BPM P-R Int: 144 ms? QRS Dur: 082 ms QT Int: 336 ms ? ? ? P-R-T Axes: 036 038 010 degrees QTc Int: 460 ms ? Sinus tachycardia Otherwise normal ECG When compared with ECG of 11-APR-2021 15:17, No significant change was found DD/ 1332 <JOE Saenz Last Filed: 07/25/22 16:24> Radiology Impression Discussion of test interpretation with radiology: I have reviewed the radiologist's reading. <JOE Saenz Last Filed: 07/25/22 16:24> Radiologist Impression: My interpretation is in agreement with the radiologist's impression of this imaging study. EXAMINATION: XR CHEST CLINICAL INFORMATION: Shortness of breath, cough, Covid COMPARISON: None TECHNIQUE: 2 views of the chest were obtained. FINDINGS: The lungs are clear. No airspace consolidation, pleural effusion, or pneumothorax. The cardiomediastinal silhouette is within normal limits. No acute osseous injury. XR/XR chest 2V IMPRESSION: No acute pulmonary disease. Dictated By: Jayden Baez Signed By: Electronically signed by Jayden?Nestor 07/25/22 1515 <JOE Saenz - Last Filed: 07/25/22 16:24> Discharge Plan Discharge Clinical Impression: COVID-19 <JOE Jorge - Last Filed: 07/25/22 15:53> Patient Disposition: Home, Self-Care <JOE Jorge - Last Filed: 07/25/22 15:53> Instructions: COVID-19 (Coronavirus Disease 2019) (ED) <JOE Jorge - Last Filed: 07/25/22 15:53> Additional Instructions: Follow up with your primary care provider. Return to the emergency department immediately if your symptoms worsen or if you develop any dizziness, shortness of breath, difficulty breathing, chest pain, blurry vision, loss of vision, nausea, vomiting, abdominal pain, fever, chills, back pain, or any other complaints. <JOE Jorge - Last Filed: 07/25/22 15:53> Prescriptions: New benzonatate 100 mg capsule 100 mg PO BID PRN (Reason: cough) 7 Days Qty: 14 0RF prednisone 20 mg tablet 20 mg PO DAILY 7 Days Qty: 7 0RF albuterol sulfate 90 mcg/actuation HFA aerosol inhaler 1 inh inhalation QID Qty: 6.7 0RF No Action lisinopril-hydrochlorothiazide 20-12.5 mg tablet 1 tab PO DAILY <JOE Jorge - Last Filed: 07/25/22 15:53> Referrals: Gera Vu MD [Primary Care Provider] - <JOE Jorge - Last Filed: 07/25/22 15:53> Stand Alone Forms: Work/School Release <JOE Jorge - Last Filed: 07/25/22 15:53> Interventions: ED Discharge Assessment Last Done: 07/25/22 16:09 <JOE Jorge - Last Filed: 07/25/22 15:53> Discharge Date/Time: 07/25/22 16:10 <JOE Jorge - Last Filed: 07/25/22 15:53> Print Language: Estonian <JOE Jorge - Last Filed: 07/25/22 15:53>
--- NOTE | 2022-07-25 13:29 | ECG_ITS ---
Test Reason : SOB Blood Pressure : / mmHG Vent. Rate : 113 BPM Atrial Rate : 113 BPM P-R Int : 144 ms QRS Dur : 082 ms QT Int : 336 ms P-R-T Axes : 036 038 010 degrees QTc Int : 460 ms Sinus tachycardia Otherwise normal ECG When compared with ECG of 11-APR-2021 15:17, No significant change was found Referred By: Rosalind Taylor Electronically Signed By:Reji Cronin
[2022-07-25 13:51] LABS: MANUAL DIFF FLAG NO
[2022-07-25 14:03] LABS: Prothrombin Time 11.9 SEC (10.0-13.1)
[2022-07-25 14:05] LABS: Basophils Percent Auto 0.5 % (0-2); Eosinophils Absolute Auto 0.1 X10*3/uL (0.0-0.4); Eosinophils Percent Auto 0.8 % (0-4); Hematocrit 39.4 % (37.0-47.0); Hemoglobin 13.2 g/dl (12.0-16.0); Imm Gran Abs Auto 0.01 X10*3/uL (0.00-0.03); Imm Gran Pct Auto 0.2 % (0.0-0.4); Lymphocytes Absolute Auto 0.9 X10*3/uL (1.2-4.9); Lymphocytes Percent Auto 13.8 % (20-40); Mean Corpuscular HGB Conc 33.5 g/dl (31.0-35.0); Mean Corpuscular Hemoglobin 26.9 pg (27.0-33.0); Mean Corpuscular Volume 80.4 fL (80.0-98.0); Mean Platelet Volume 9.5 fL (9.4-12.3); Monocytes Absolute Auto 0.5 X10*3/uL (0.1-1.2); Monocytes Percent Auto 8.1 % (2-11); Neutrophils Percent Auto 76.6 % (45-73); Platelet Count 279 X10*3/uL (160-400); Red Cell Distribution Width 13.5 % (11.0-16.0); White Blood Count 6.5 X10*3/uL (4.8-10.8)
[2022-07-25 14:06] LABS: COVID-19 Test Positive (Negative); IDNOW Serial# 16C4AD1C; Partial Thromboplastin Time 30.8 SEC (26.0-36.4)
[2022-07-25 14:07] LABS: Alanine Aminotransferase 42 U/L (0-31); Albumin Level 4.3 g/dL (3.5-5.0); Alkaline Phosphatase 73 U/L (39-117); Anion Gap 13 (12-20); Aspartate Amino Transferase 34 U/L (5-31); Bilirubin Direct 0.2 mg/dL (0.0-0.5); Bilirubin Total 0.7 mg/dL (0.0-1.0); Blood Urea Nitrogen 7 mg/dL (9-16); C Reactive Protein 3.86 mg/dL (< or = 0.50); Calcium 9.4 mg/dL (8.4-10.2); Carbon Dioxide 26 mmol/L (22-29); Chloride 103 mmol/L (96-108); Creatinine Clr Calc Pharmacy 127.7; Estimated Glomerular Filt Rate > 60; Glucose Random 133 mg/dL (60-115); Magnesium 1.8 mg/dL (1.6-2.6); Potassium 4.3 mmol/L (3.3-5.1); Sodium 138 mmol/L (135-145); Total Protein 7.1 g/dL (6.5-8.0)
[2022-07-25 14:13] LABS: B Type Natriuretic Peptide < 10 pg/mL (<100)
[2022-07-25 14:20] LABS: Troponin-I High Sensitivity < 3.5 ng/L (<3.5-17.0)
--- NOTE | 2022-07-25 16:05 | PC.NURSE ---
Patient a/ox4 . VSS . Went over discharge instructions as ordered by provider . patient to follow up with primary care . patient to return to Ed if symptoms worsen no questions at this time .
== END 2022-07-25 16:10 | disposition home or self-care (01) ==
PROVIDERS: Physician Assistant; Emergency Provider Emergency Medicine; PCP Internal Medicine
DX: U07.1 COVID-19 (principal); R05.9 Cough, unspecified; R06.02 Shortness of breath; Z79.899 Other long term (current) drug therapy
CPT/HCPCS: 71046; 80048; 80076; 83735; 83880; 84484; 85025; 85610; 85730; 86140; 87635; 93005; 99283; 99284

== ENCOUNTER 2023-02-08 13:52 | Outpatient (AMB) | payer BC, SELFPAY ==
--- NOTE | 2023-02-08 13:58 | MHC.OFFVIS ---
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 Scribed for MAIRA Roberts by Chapis Khan front office medical assistant, on 02/08/2023 at 2:30 pm EST Embedded Software Developer Required: No Information Interpreted: non-clinical & clinical Supervisor Shearing: Supervisor Shearing Present (Corrie SERRANO) Accompanied by: Self / Same As Patient Allergies No Known Allergies Allergy (Verified 02/08/23 14:03) Is last menstrual period known: No HPI HPI Comments History of Present Illness Details She is a premenopausal woman presenting for annual exam. Doing well with no cashier tube room concerns. She admits to an unhealthy diet and not exercising. Currently sexually active. Uses Mirena IUD for BC, very happy with IUD. Reports a low sex drive since insertion. Denies vaginal itching and irritation. STD screening offered; she declines. Denies family hx of breast, colon and ovarian cancer. Last pap smear 2019. Last mammogram 11/25/20. Has one scheduled for next month. [facility] Medical History History of severe pre-eclampsia HTN (hypertension) Surgical History Hx of section Family History Mother Epilepsy Father HTN (hypertension) Maternal Grandmother Alzheimer disease Social History Household Members: Spouse and Family Housing: House Alcohol intake: current Alcohol intake frequency: a few times a month Patient Tobacco Use Status: Never used Tobacco Current occupational status: employed Current occupation: [employer] Sexual orientation: Straight/Heterosexual Gender identity: Female Female Reproductive History Menstrual Age of Menarche: 14 control method: progestin IUCD Total pregnancies: 6 Full term: 2 Number of Living Children: 2 Ab induced: 1 Ab spontaneous: 4 Date of last pap smear: 07/12/20 History of abnormal pap smear: No Date of Mammogram: 11/25/20 Review of Systems Const All systems reviewed & are unremarkable except as noted in HPI and below Physical Exam Vital Signs: Last Vital Signs BP 130/88 02/08/23 13:59 BMI result Body Mass Index 47.6 Const General: cooperative, healthy appearing, no acute distress, well developed and alert Orientation/consciousness: patient oriented x3 HEENT Head: Yes normal to inspection Eyes General: appearance normal, both eyes and all related structures Neck Neck: Yes normal visual inspection Thyroid: Thyroid normal Chest Chest palpation & inspection: normal inspection of the chest Breast/axilla inspection: normal inspection of the breasts (no puckering, dimpling, peau de orange, retraction, discharge, masses) Breast/axilla palpation: normal palpation of the breasts Resp Effort & Inspection: normal respiratory effort GI Inspection: Yes normal to inspection and Yes obesity Palpation (GI): Soft to palpation Rectal Exam - Female: deferred General: Yes bladder normal to palpation External Female Exam: normal external appearance and normal appearance of the urethra Speculum Exam - Vagina: normal appearance of the vagina, normal palpation and normal vaginal discharge Speculum Exam - Cervix: normal appearance of the cervix, normal palpation and Other cervical findings present (IUD strings visible) Bimanual exam- vagina & uterus: normal bimanual exam, normal palpation, uterine size normal, bladder normal to palpation and normal palpation Bimanual Exam- Adnexa, other: normal adnexae and no masses Skin General skin exam: no rashes or lesions noted Neuro General: patient oriented x3 Cognition (Neuro): normal cognition Extrem General: Yes normal to inspection Psych Attitude: cooperative Thought process: Normal thought process present Assessment & Plan Assessment & Plan (1) Well woman exam with routine gynecological exam: Code(s): Z01.419 - Encounter for gynecological examination (general) (routine) without abnormal findings Plan: Discussed: Current recommendations for pap smears per ASCCP guidelines. Breast awareness and periodic self breast exams. Encouraged yearly mammograms. Maintaining a healthy lifestyle including a well balanced diet and routine exercise. All of her questions and concerns were addressed to the best of my ability. RTO in one year for AG. Orders: Orders MM tomosynthesis screening BI Today Z12.31 - Encounter for screening mammogram for malignant neoplasm of breast Coding Level of Care Code Est Pt Prev Care 40-64y(59324) Diagnoses Well woman exam with routine gynecological exam Z01.419
[2023-02-08 13:59] VITALS: BP 130/88; BMI 47.6
== END 2023-02-08 14:48 | disposition home or self-care (01) ==
LOC: HO.HWS 13:52
PROVIDERS: PCP Internal Medicine; Visit Provider Advanced Practice Midwife
DX: Z01.419 Encounter for gynecological examination (general) (routine) without abnormal findings (principal)
CPT/HCPCS: 99396

== ENCOUNTER → 2023-02-08 13:52 | Outpatient (BNVA) | payer BC, SELFPAY | PROVIDERS: PCP Internal Medicine; Visit Provider Advanced Practice Midwife ==

== ENCOUNTER 2023-02-28 15:45 | Outpatient (REF) | payer BC, SELFPAY | END 2023-02-28 15:46 | disposition home or self-care (01) | LOC: HO.MAMMO 15:45 | PROVIDERS: PCP Internal Medicine; Visit Provider Advanced Practice Midwife | DX: Z12.31 Encounter for screening mammogram for malignant neoplasm of breast (principal) | CPT/HCPCS: 77063; 77067 ==

== ENCOUNTER → 2023-02-28 16:00 | Outpatient (BNV) | payer BC, SELFPAY | PROVIDERS: PCP Internal Medicine; Visit Provider Radiology Diagnostic Radiology | DX: Z12.31 Encounter for screening mammogram for malignant neoplasm of breast (principal) | CPT/HCPCS: 77063; 77067 ==

== ENCOUNTER 2024-03-03 15:46 | Outpatient (REF) | payer BC, SELFPAY ==
--- NOTE | ~2024-03-03 | MM_ITS ---
EXAMINATION: MM SCREENING DIGITAL BREAST TOMOSYNTHESIS, BILATERAL CLINICAL INFORMATION: Screening. Asymptomatic. COMPARISON: Mammography: This study is compared with prior exams dating back to TECHNIQUE: Digital breast tomosynthesis is performed in both the craniocaudal and mediolateral oblique views along with computer-aided detection (CAD). Synthesized 2D images are generated from the tomosynthesis. FINDINGS: There are scattered areas of fibroglandular density (ACR BI-RADS breast composition Category b). There are no significant masses, abnormal calcifications, or other abnormalities. MM/MM tomosynthesis screening BI IMPRESSION: No mammographic evidence of malignancy. ASSESSMENT: BI-RADS BI-RADS 1 - Negative RECOMMENDATION: Routine annual mammography screening. 1 year F/U This examination should not preclude the clinical evaluation of a suspicious palpable abnormality. This patient's information was entered into a reminder system with a target due date for their next mammogram. Electronically signed by: Jessica Comer DO 04/01/2024 05:43 PM EDT
== END 2024-03-03 15:47 | disposition home or self-care (01) ==
LOC: HO.MAMMO 15:46
PROVIDERS: PCP Internal Medicine; Visit Provider Internal Medicine
DX: Z12.31 Encounter for screening mammogram for malignant neoplasm of breast (principal)
CPT/HCPCS: 77063; 77067

== ENCOUNTER → 2024-03-03 16:00 | Outpatient (BNV) | payer BC, SELFPAY | PROVIDERS: PCP Internal Medicine; Visit Provider Internal Medicine | DX: Z12.31 Encounter for screening mammogram for malignant neoplasm of breast (principal) | CPT/HCPCS: 77063; 77067 ==

== ENCOUNTER 2024-06-30 12:47 | Outpatient (AMB) | payer BC, SELFPAY ==
--- NOTE | 2024-06-30 12:48 | MHC.OFFVIS ---
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 Doing well with concerns: she reports itching inside/outside, rashes, using wipes, Vagisil, raw in area's. No dysuria, some frequency, admits to hydrating well. No regular menses with the Mirena. Currently is sexually active. STI screening offered; she declines. Admits to not eating healthy, little exercise. Denies family history of breast, ovarian or colon cancer. Last pap smear 2019, negative. Mammogram: 2023. 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 Sexual orientation: Straight/Heterosexual Gender identity: Female Female Reproductive History Menstrual Age of Menarche: 14 control method: progestin IUCD (Mirena 08/2020) Total pregnancies: 7 Full term: 2 Number of Living Children: 2 Ab induced: 1 Ab spontaneous: 4 Date of last pap smear: 07/11/20 (neg pap and hpv) Date of Mammogram: 03/03/24 (Birad 1) Review of Systems Const All systems reviewed & are unremarkable except as noted in HPI and below Reports as per HPI Eyes Reports no additional complaints ENT Reports no additional complaints Card Reports no additional complaints Resp Reports no additional complaints GI Reports as per HPI and Reports no additional complaints Reports as per HPI Musc Reports no additional complaints Skin/Breast Reports as per HPI Neuro Reports no additional complaints Psych Reports no additional complaints Endo Reports no additional complaints Nicholas/Lymph Reports no additional complaints Aller/Immun Reports no additional complaints Physical Exam Vital Signs: Last Vital Signs BP 130/90 H 06/30/24 12:49 BMI result Body Mass Index 46.1 Const General: cooperative, healthy appearing, no acute distress, well developed and alert Orientation/consciousness: patient oriented x3 HEENT Head: Yes normal to inspection Eyes General: appearance normal, both eyes and all related structures Neck Neck: Yes normal visual inspection Thyroid: Thyroid normal Chest Chest palpation & inspection: normal inspection of the chest and other (no puckering, dimpling, peau de orange, retraction, discharge, masses) Breast/axilla inspection: normal inspection of the breasts Breast/axilla palpation: normal palpation of the breasts Resp Effort & Inspection: normal respiratory effort GI Inspection: Yes normal to inspection Palpation (GI): Soft to palpation Rectal Exam - Female: deferred General: Yes bladder normal to palpation External Female Exam: normal external appearance and normal appearance of the urethra Speculum Exam - Vagina: normal appearance of the vagina, normal palpation and normal vaginal discharge Speculum Exam - Cervix: normal appearance of the cervix, normal palpation and Other cervical findings present (IUD strings at the os) Bimanual exam- vagina & uterus: normal bimanual exam, normal palpation, uterine size normal, bladder normal to palpation, normal palpation and non-tender Bimanual Exam- Adnexa, other: no masses Skin General skin exam: no rashes or lesions noted Rashes: no rashes Neuro General: patient oriented x3 Cognition (Neuro): normal cognition Extrem General: Yes normal to inspection Psych Attitude: cooperative Thought process: Normal thought process present Results AMB Urinalysis, Automated UA Leukoctes 0 Corby/uL Last Edit by MAGGIE Juarez on 06/30/24 13:01 UA Nitrite Positive Last Edit by MAGGIE Juarez on 06/30/24 13:01 UA Urobilinogen 0 mg/dL Last Edit by MAGGIE Juarez on 06/30/24 13:01 UA Protein 0.5 mg/dL Last Edit by MAGGIE Juarez on 06/30/24 13:01 UA pH 6.0 Last Edit by MAGGIE Juarez on 06/30/24 13:01 UA Blood 0 Pa/uL Last Edit by Zeenat Kebede, RMA on 06/30/24 13:01 UA Specific Freer 1.025 Last Edit by Zeenat Kebede, RMA on 06/30/24 13:01 UA Ketone Negative Last Edit by Zeenat Kebede, RMA on 06/30/24 13:01 UA Bilirubin 0 mg/dL Last Edit by Zeenat Kebede RMA on 06/30/24 13:01 UA Glucose 3 mg/dL Last Edit by Zeenat Kebede, RMA on 06/30/24 13:01 Results Reviewed Results Reviewed: Laboratory Last Values Urine pH (Auto) 6.0 06/30/24 12:59 Specific Freer (Auto) 1.025 06/30/24 12:59 Urine Protein (Auto) 0.5 mg/dL 06/30/24 12:59 Glucose (UA)(Auto) 3 mg/dL 06/30/24 12:59 Urine Ketones (Auto) Negative 06/30/24 12:59 Urine Blood (Auto) 0 Pa/uL 06/30/24 12:59 Urine Nitrite (Auto) Positive 06/30/24 12:59 Urine Bilirubin (Auto) 0 mg/dL 06/30/24 12:59 Urine Urobilinogen (Auto) 0 mg/dL 06/30/24 12:59 Leukocyte Esterase (Auto) 0 Corby/uL 06/30/24 12:59 Assessment & Plan Assessment & Plan (1) Well woman exam with routine gynecological exam: Code(s): Z01.419 - Encounter for gynecological examination (general) (routine) without abnormal findings Category: Medical Plan Discussed: Current recommendations for pap smears per ASCCP guidelines. Breast awareness and periodic breast exams. Mammogram yearly. Maintain a healthy lifestyle including a well balanced diet and routine exercise. Use condoms for STI and prevention. Colonoscopy >45, or at risk sooner. Advised to speak with her primary care regarding setting up the referral. Patient verbalizes understanding and agrees to the plan of care. She was given opportunity to ask questions and all questions were answered to the best of my ability. RTO in one year for annual precision instrument and tool maker examination. This note is constructed using voice recognition software. While every effort has been made to ensure accuracy, wet end helper errors may have been included. Orders: Orders AMB Urinalysis Automated Today R30.0 - Dysuria Urine Culture Today R30.0 - Dysuria CT NG by PCR Today N89.8 - Other specified noninflammatory disorders of vagina Bacterial Vaginosis Panel Today N89.8 - Other specified noninflammatory disorders of vagina Medications: New fluconazole 150 mg PO ONCE 1 tab 0RF personal 1 day clotrimazole-betamethasone 1-0.05 % apply externally a thin coat to the area 1 appl topical BID 45 grams 0RF itching 7 days nitrofurantoin monohyd/m-cryst 100 mg (Macrobid) must administer with a meal/food 100 mg PO BID 10 caps 0RF UTI 5 days Coding Level of Care Code Est Pt Prev Care 40-64y(02308) Diagnoses Well woman exam with routine gynecological exam Z01.419
[2024-06-30 12:49] VITALS: BP 130/90; BMI 46.1
== END 2024-06-30 13:30 | disposition home or self-care (01) ==
LOC: HO.HWS 12:47
PROVIDERS: PCP Internal Medicine; Visit Provider Advanced Practice Midwife
DX: Z01.419 Encounter for gynecological examination (general) (routine) without abnormal findings (principal); N90.89 Other specified noninflammatory disorders of vulva and perineum
CPT/HCPCS: 99213; 99396; 99459

== ENCOUNTER 2024-06-30 12:47 | Outpatient (REF) | payer BC, SELFPAY ==
[2024-06-30 18:15] LABS: Bacterial Vaginosis PCR NEGATIVE (Negative); Candida Group PCR DETECTED (Not Detect); Candida glab krusei PCR NOT DETECTED (Not Detect); Trichomonas vaginalis PCR NOT DETECTED (Not Detect)
[2024-07-01 12:03] LABS: CT PCR NOT DETECTED (Not Detect.); NG PCR NOT DETECTED (Not Detect.)
== END 2024-06-30 12:48 | disposition home or self-care (01) ==
LOC: HO.LAB 12:47
PROVIDERS: PCP Internal Medicine; Visit Provider Advanced Practice Midwife
DX: R30.0 Dysuria (principal); N89.8 Other specified noninflammatory disorders of vagina
CPT/HCPCS: 0352U; 81003; 87086; 87088; 87186; 87491; 87591

== ENCOUNTER 2024-06-30 13:23 | Outpatient (REF) | payer BC, SELFPAY | END 2024-06-30 13:24 | disposition home or self-care (01) | LOC: HO.LNP 13:23 | PROVIDERS: Visit Provider Advanced Practice Midwife | DX: Z13.89 Encounter for screening for other disorder (principal) ==

== ENCOUNTER 2024-08-03 14:57 | Emergency (ER) | payer BC, SELFPAY ==
--- NOTE | ~2024-08-03 | XR_ITS ---
EXAMINATION: XR PELVIS CLINICAL INFORMATION: trauma pain COMPARISON: None available. TECHNIQUE: AP view of the pelvis. FINDINGS: No fracture. Hip joint spaces are maintained. Alignment is anatomic. Sacroiliac joints and pubic symphysis are normal. No abnormal soft tissue calcifications. XR/XR pelvis 1-2V IMPRESSION: Normal pelvis. Electronically signed by: Eber Tomlin MD 08/03/2024 05:11 PM EST
--- NOTE | ~2024-08-03 | XR_ITS ---
EXAMINATION: XR KNEE, RIGHT CLINICAL INFORMATION: trauma pain COMPARISON: None available. TECHNIQUE: Four views of the right knee. FINDINGS: The tricompartmental joint spaces maintain normal. No visible acute fracture, dislocation or subluxation seen. No abnormal joint effusion. XR/XR knee RT 4V IMPRESSION: Unremarkable right knee exam Electronically signed by: Eber Tomlin MD 08/03/2024 05:10 PM EST
--- NOTE | ~2024-08-03 | XR_ITS ---
EXAMINATION: XR FEMUR, RIGHT CLINICAL INFORMATION: trauma pain COMPARISON: None available. TECHNIQUE: AP and lateral views of the right femur were obtained. FINDINGS: The bones and soft tissues are normal. No fracture. No osseous lesions. XR/XR femur RT 2V IMPRESSION: Normal right femur. Electronically signed by: Eber Tomlin MD 08/03/2024 05:12 PM [facility]
[2024-08-03 15:22] VITALS: BP 160/100; PULSE 97; O2SAT 100
[2024-08-03 15:31] VITALS: BP 171/93; PULSE 77; RESP 18; TEMP 36.5; O2SAT 99; BMI 46.1
--- NOTE | 2024-08-03 15:32 | ED_ITS ---
HPI - Extremity Injury (Lower) General Chief Complaint: Extremity Injury, Lower Stated Complaint: RLE PAIN PER EMS Time Seen by Provider: 08/03/24 15:17 Source: patient and EMS Mode of arrival: EMS Limitations: no limitations History of Present Illness ED Provider: Radha Doyle APRN HPI Narrative: 44-year-old female with history of hypertension presents the ER with complaints of right thigh and knee pain after involved in a sledding accident. Patient reports she was going down a [place] on a sled when she ran into a fence with a metal pole striking the right thigh. She denies hitting her head or loss of consciousness. She has no complaints of chest pain, abdominal pain, neck pain, back pain, headache. Patient reports pain in her right thigh and right knee. Denies pain in her hip or pelvis. Denies any associated weakness, numbness or tingling of the extremity. Patient was nonambulatory prior to arrival and required EMS transportation. Related Data Home Medications ?Medication ?Instructions ?Recorded ?Confirmed lisinopril 20 1 tab PO DAILY 07/11/20 mg-hydrochlorothiazide 12.5 mg tablet levonorgestrel 21 mcg/24 hr (up to intrauterine 02/08/23 8 years) 52 mg intrauterine device (Mirena) Previous Rx's ?Medication ?Instructions ?Recorded albuterol sulfate 90 mcg/actuation 1 inh inhalation QID #6.7 grams 07/25/22 aerosol inhaler clotrimazole-betamethasone 1 1 appl topical BID itching 7 days 06/30/24 %-0.05 % topical cream #45 grams fluconazole 150 mg tablet 150 mg PO ONCE personal 1 day #1 06/30/24 tab nitrofurantoin 100 mg PO BID UTI 5 days #10 caps 06/30/24 monohydrate/macrocrystals 100 mg capsule (Macrobid) ibuprofen 600 mg tablet 600 mg PO Q8H PRN pain #30 tabs 08/03/24 oxycodone 5 mg tablet 5 mg PO Q6H PRN pain #8 tabs 08/03/24 Allergies Allergy/AdvReac Type Severity Reaction Status Date / Time No Known Allergies Allergy Verified 08/03/24 15:34 Review of Systems 2 Review of Systems: Yes all other systems are reviewed and are negative Constitutional: Constitutional: Reports no additional constitutional complaints, Denies body ache(s), Denies chills, Denies fever(s), Denies headache(s) and Denies weakness Eyes: Eyes: Reports no additional eye complaints and Denies change in vision ENT: Reports system reviewed and no additional complaints, except as documented, Denies dizziness, Denies headache(s), Denies nasal congestion, Denies nasal discharge and Denies neck pain Cardiovascular: Cardiovascular: Reports no additional cardiovascular complaints, Denies chest pain, Denies leg edema and Denies dyspnea Respiratory: Respiratory: Reports no additional respiratory complaints, Denies cough and Denies dyspnea Gastrointestinal: Gastrointestinal: Reports no additional gastrointestinal complaints, Denies abdominal pain, Denies diarrhea, Denies nausea and Denies vomiting Genitourinary: Genitourinary: Reports no additional female genitourinary complaints and Denies urinary incontinence Musculoskeletal: Musculoskeletal: Reports no additional musculoskeletal complaints, Denies back pain, Reports arthralgias, Reports joint swelling, Reports limited range of motion, Denies neck pain, Denies numbness and Denies tingling Integumentary/Breasts: Skin/Breast: Reports system reviewed and no additional complaints, except as docu and Denies rash Neurologic: Reports system reviewed and no additional complaints, except as documented, Denies Abnormal speech present, Denies dizziness, Denies headache(s), Denies numbness, Denies tingling and Denies weakness PMFSH Past Medical History Attestation statement: The following information was validated with the patient. Source: old records reviewed and nursing notes reviewed Medical History History of severe pre-eclampsia HTN (hypertension) Surgical History Hx of section Family History Family History Mother Epilepsy Father HTN (hypertension) Maternal Grandmother Alzheimer disease Social History Social History Household Members: Spouse and Family Housing: House Alcohol intake: current Alcohol intake frequency: a few times a month Patient Tobacco Use Status: Never used Tobacco Advance Directives: No Advance Directives Information Provided: No Do you have a plan to hurt others: No Plan Current occupational status: employed Current occupation: [employer] Sexual orientation: Straight/Heterosexual Gender identity: Female Physical Exam 2 Vital Signs: Vital Signs: Last Vital Signs Temp 97.7 F 08/03/24 15:31 Pulse 77 08/03/24 15:31 Resp 18 08/03/24 15:31 BP 171/93 H 08/03/24 15:31 Pulse Ox 99 08/03/24 15:31 O2 Del Method Room Air 08/03/24 15:31 BMI result Body Mass Index 46.1 Const: General: cooperative, healthy appearing, comfortable and no acute distress Orientation/consciousness: patient oriented x3 Limitations: no limitations HEENT: Head: Yes normal to inspection, No Sanchez's sign and No raccoon eyes Ears: hearing grossly normal bilaterally General nose exam: Normal external nose present Face and sinus: Yes normal facial exam Mouth: Normal oral and palatal mucosa present Throat: Yes posterior oropharynx normal Eyes: General: appearance normal, both eyes and all related structures P upils: Equal, round and reactive pupils present Neck: Other: No cervical midline tenderness, step-offs or deformities Neck: Yes normal visual inspection and Yes full ROM Chest: Chest palpation & inspection: normal inspection of the chest Resp: Effort & Inspection: normal respiratory effort Auscultation: clear to auscultation bilaterally Cardio: Rate: regular rate Rhythm: regular rhythm Peripheral pulses: P eripheral pulses 2+ throughout GI: Inspection: Yes normal to inspection Palpation (GI): Soft to palpation and nontender Auscultation: normal bowel sounds Back/Spine/Pelvis: Thoracic/Lumbar Spine: thoracic and lumbar spine normal to inspection Skin: General skin exam: no rashes or lesions noted Neuro: General: patient oriented x3, moves all extremities, no focal motor deficits, normal sensation to monofilament and Unable to assess gait Cranial nerves: Yes CN's II-XII intact bilaterally, Yes Equal, round and reactive pupils present, Yes Bilaterally intact EOM present, Yes Nystagmus not present, Yes Normal facial strength present and Yes Midline tongue present Cognition (Neuro): normal cognition Speech: No Abnormal speech present Gait exam (Neuro): Unable to assess gait Motor exam (neuro): 5/5 motor strength present throughout Sensory Exam: Normal double simultaneous stimulation for sensation Extrem: Other: there is tenderness on palpation to the right anterior knee. There is swelling and ecchymosis and quite a bit of tenderness over the right thigh area. She has 2+ DP and PT pulses. Normal distal sensation. Intact range of motion of the distal Pelvis is stable General: Yes normal to inspection Course Course Course Narrative: x-ray show no acute finding. I removed the Ronnie bandage from the right thigh to reassess the area. There is a small hematoma but no large or expanding hematoma. CMS is intact. Likely contusion. Patient placed in Ronnie wrap and given crutches for home. Will provided with analgesia for home. Reviewed worrisome signs and symptoms of when to return to the emergency room. Comfortable plan for discharge home. Medications Administered Discontinued Medications Generic Name Dose Route Start Last Admin Trade Name Freq PRN Reason Stop Dose Admin Sodium Chloride 1,000 mls @ 999 mls/hr 08/03/24 15:24 08/03/24 15:38 Ns IV 08/03/24 16:24 999 mls/hr .Q1H1M STA Administration Morphine Sulfate 4 mg 08/03/24 15:24 08/03/24 15:39 Morphine Sulfate 4 Mg/Ml Cartridge IVPUSH 08/03/24 15:25 4 mg ONCE ONE Administration Protocol Ondansetron HCl 4 mg 08/03/24 15:24 08/03/24 15:39 Ondansetron Hcl 4 Mg/2 Ml Vial IVPUSH 08/03/24 15:25 4 mg ONCE ONE Administration Medical Decision Making Medical Decision Making [facility] Narrative: 44-year-old female with history of hypertension presents the ER with complaints of right thigh and knee pain after involved in a sledding accident. Patient reports she was going down a [place] on a s[place] when she ran into a fence with a metal pole striking the right thigh. She denies hitting her head or loss of consciousness. She has no complaints of chest pain, abdominal pain, neck pain, back pain, headache. Patient reports pain in her right thigh and right knee. Denies pain in her hip or pelvis. Denies any associated weakness, numbness or tingling of the extremity. Patient was nonambulatory prior to arrival and required EMS transportation. +TTP with swelling/echymosis over right thigh, right knee CMS intact distally Will obtain labs, x-rays, provide analgesia, ronnie wrap applied to right thigh Differential Diagnosis Differential Diagnoses: The differential diagnosis associated with the presentation includes fracture, dislocation, low suspicion for vascular injury Admission/Observation Consideration of admission/observation: Escalation of care including admission/observation considered x-rays negative for fracture or dislocation, low suspicion for vascular injury requiring advanced imaging, urgent ortho consult Lab Data MDM Lab Attestation statement: I reviewed the patient's lab results. 08/03/24 16:01 08/03/24 16:01 Labs: Lab Results 08/03/24 08/03/24 Range/Units 16:01 16:25 WBC 12.2 H (4.8-10.8) X10*3/uL RBC 5.11 (4.20-5.50) X10*6/uL Hgb 14.3 (12.0-16.0) g/dl Hct 41.8 (37.0-47.0) % MCV 81.8 (80.0-98.0) fL MCH 28.0 (27.0-33.0) pg MCHC 34.2 (31.0-35.0) g/dl RDW 13.0 (11.0-16.0) % Plt Count 284 (160-400) X10*3/uL MPV 10.1 (9.4-12.3) fL Immature Gran % (Auto) 0.5 H (0.0-0.4) % Neut % (Auto) 76.8 H (45-73) % Lymph % (Auto) 17.1 L (20-40) % [place] % (Auto) 4.2 (2-11) % Eos % (Auto) 1.1 (0-4) % Baso % (Auto) 0.3 (0-2) % Lymph # (Auto) 2.1 (1.2-4.9) X10*3/uL [place] # (Auto) 0.5 (0.1-1.2) X10*3/uL Eos # (Auto) 0.1 (0.0-0.4) X10*3/uL Baso # (Auto) 0.0 (0.0-0.2) X10*3/uL Abs Immat Gran (auto) 0.06 H (0.00-0.03) X10*3/uL Absolute Neuts (auto) 9.4 H (2.0-8.3) x10*3/uL Absolute Nucleated RBC 0.000 (0.0-0.012) X10*3/uL Nucleated RBC % (auto) 0.0 (0.0-0.2) /100WBC PT 11.2 (10.9-12.4) SEC INR 1.0 (0.9-1.1) Sodium 136 (135-145) mmol/L Potassium 4.5 (3.3-5.1) mmol/L Chloride 103 (96-108) mmol/L Carbon Dioxide 23 (22-29) mmol/L Anion Gap 15 (12-20) BUN 14 (9-16) mg/dL Creatinine 0.79 (0.5-1.4) mg/dL Estim Creat Clear Calc 121.1 Estimated GFR > 60 Random Glucose 185 H (60-115) mg/dL Calcium 9.5 (8.4-10.2) mg/dL Total Bilirubin 0.3 (0.0-1.0) mg/dL Direct Bilirubin 0.1 (0.0-0.5) mg/dL AST 32 H (5-31) U/L ALT 33 H (0-31) U/L Alkaline Phosphatase 54 (39-117) U/L Total Protein 7.5 (6.5-8.0) g/dL Albumin 3.9 (3.5-5.0) g/dL Beta HCG, Quant < 2 mIU/mL Independent Interpretation I performed an independent interpretation of an: Plain X-Ray Interpretation: I independently viewed the x-ray and agree with the radiology report Radiology Impression Discussion of test interpretation with radiology: I have reviewed the radiologist's reading. Radiologist Impression: [place] [id number] XRay Report Signed Patient: Valery Birmingham MR#: [id number] : 1980 Acct:[id number] Age/Sex: 44 / F ADM Date: 08/03/24 Loc: HO.ED Attending Dr: Ordering Physician: Radha Doyle NP Date of Service: 08/03/24 Procedure(s): XR femur RT 2V Accession Number(s): [id number] cc: Gera Vu MD; Radha Doyle NP~ EXAMINATION: XR FEMUR, RIGHT CLINICAL INFORMATION: trauma pain COMPARISON: None available. TECHNIQUE: AP and lateral views of the right femur were obtained. FINDINGS: The bones and soft tissues are normal. No fracture. No osseous lesions. XR/XR femur RT 2V IMPRESSION: Normal right femur. Electronically signed by: Eber Tomlin MD 08/03/2024 05:12 PM EST RP [address] [address] XRay Report Signed Patient: Valery Birmingham MR#: [id number] : 1980 Acct:[id number] Age/Sex: 44 / F ADM Date: 08/03/24 Loc: HO.ED Attending Dr: Ordering Physician: Radha Doyle NP Date of Service: 08/03/24 Procedure(s): XR pelvis 1-2V Accession Number(s): [id number] cc: Gera Vu MD; Radha Doyle NP~ EXAMINATION: XR PELVIS CLINICAL INFORMATION: trauma pain COMPARISON: None available. TECHNIQUE: AP view of the pelvis. FINDINGS: No fracture. Hip joint spaces are maintained. Alignment is anatomic. Sacroiliac joints and pubic symphysis are normal. No abnormal soft tissue calcifications. XR/XR pelvis 1-2V IMPRESSION: Normal pelvis. Electronically signed by: Eber Tomlin MD 08/03/2024 05:11 PM EST RP [address] [address] XRay Report Signed Patient: Valery Birmingham MR#: [id number] : 1980 Acct:[id number] Age/Sex: 44 / F ADM Date: 08/03/24 Loc: HO.ED Attending Dr: Ordering Physician: Radha Doyle NP Date of Service: 08/03/24 Procedure(s): XR knee RT 4V Accession Number(s): [id number] cc: Gera Vu MD; Radha Doyle GATE SUPERVISOR~ EXAMINATION: XR KNEE, RIGHT CLINICAL INFORMATION: trauma pain COMPARISON: None available. TECHNIQUE: Four views of the right knee. FINDINGS: The tricompartmental joint spaces maintain normal. No visible acute fracture, dislocation or subluxation seen. No abnormal joint effusion. XR/XR knee RT 4V IMPRESSION: Unremarkable right knee exam Electronically signed by: Eber Tomlin MD 08/03/2024 05:10 PM [facility] [place] Historian Clinical information obtained from an independent historian. History obtained from or confirmed by: Parent and EMS Tests considered The following testing was considered but not selected: low suspicion for vascular injury requiring advanced imaging, Prescription Management I considered prescription management with: Pain Medication Procedures Orthopedic Splinting/Casting Injury #1: Side: right Lower Extremity Injury Location: lower leg Lower Extremity Immobilizer: Ronnie wrap Other Orthopedic Equipment: crutches Discharge Plan Discharge Clinical Impression: Contusion of right thigh Patient Disposition: Home, Self-Care Instructions: Crutch Instructions (ED), Contusion in Adults (ED) Additional Instructions: Use the Ronnie wrap for the next few days Apply ice to the area Elevate the leg Limit weight-bearing for the next few days Take Motrin or Tylenol for pain 1st. If you have continue to have pain you may take the oxycodone Return for worsening symptoms Prescriptions: New oxycodone 5 mg tablet 5 mg PO Q6H PRN (Reason: pain) Qty: 8 0RF Rx Instructions: Partial Fill upon patient request. ibuprofen 600 mg tablet 600 mg PO Q8H PRN (Reason: pain) Qty: 30 0RF No Action albuterol sulfate 90 mcg/actuation HFA aerosol inhaler 1 inh inhalation QID Qty: 6.7 0RF lisinopril-hydrochlorothiazide 20-12.5 mg tablet 1 tab PO DAILY clotrimazole-betamethasone 1-0.05 % cream 1 appl topical BID 7 Days Qty: 45 0RF Rx Instructions: apply externally a thin coat to the area fluconazole 150 mg tablet 150 mg PO ONCE 1 Days Qty: 1 0RF nitrofurantoin monohyd/m-cryst [Macrobid] 100 mg capsule 100 mg PO BID 5 Days Qty: 10 0RF Rx Instructions: must administer with a meal/food Mirena 21 mcg/24 hours (8 yrs) 52 mg intrauterine device intrauterine Referrals: Gera Vu MD [Primary Care Provider] - 1 week Print Language: Luxembourgish
[2024-08-03] MEDS: 0.9 % Sodium Chloride 1,000 ML 999 ML IV (15:38)
[2024-08-03] MEDS: ondansetron HCL 4 MG/2 ML VIAL IVPUSH (15:39)
[2024-08-03] MEDS: Morphine Sulfate 4 MG/ML CARTRIDGE IVPUSH (15:39)
[2024-08-03 16:12] LABS: MANUAL DIFF FLAG NO
[2024-08-03 16:14] LABS: Basophils Percent Auto 0.3 % (0-2); Eosinophils Absolute Auto 0.1 X10*3/uL (0.0-0.4); Eosinophils Percent Auto 1.1 % (0-4); Hematocrit 41.8 % (37.0-47.0); Hemoglobin 14.3 g/dl (12.0-16.0); Imm Gran Abs Auto 0.06 X10*3/uL (0.00-0.03); Imm Gran Pct Auto 0.5 % (0.0-0.4); Lymphocytes Absolute Auto 2.1 X10*3/uL (1.2-4.9); Lymphocytes Percent Auto 17.1 % (20-40); Mean Corpuscular HGB Conc 34.2 g/dl (31.0-35.0); Mean Corpuscular Volume 81.8 fL (80.0-98.0); Mean Platelet Volume 10.1 fL (9.4-12.3); Monocytes Absolute Auto 0.5 X10*3/uL (0.1-1.2); Monocytes Percent Auto 4.2 % (2-11); Neutrophils Absolute Auto 9.4 x10*3/uL (2.0-8.3); Neutrophils Percent Auto 76.8 % (45-73); Platelet Count 284 X10*3/uL (160-400); Red Blood Count 5.11 X10*6/uL (4.20-5.50); White Blood Count 12.2 X10*3/uL (4.8-10.8)
[2024-08-03 16:44] LABS: Alanine Aminotransferase 33 U/L (0-31); Albumin Level 3.9 g/dL (3.5-5.0); Anion Gap 15 (12-20); Aspartate Amino Transferase 32 U/L (5-31); Bilirubin Direct 0.1 mg/dL (0.0-0.5); Bilirubin Total 0.3 mg/dL (0.0-1.0); Blood Urea Nitrogen 14 mg/dL (9-16); Calcium 9.5 mg/dL (8.4-10.2); Carbon Dioxide 23 mmol/L (22-29); Chloride 103 mmol/L (96-108); Creatinine Clr Calc Pharmacy 121.1; Estimated Glomerular Filt Rate > 60; Glucose Random 185 mg/dL (60-115); Potassium 4.5 mmol/L (3.3-5.1); Sodium 136 mmol/L (135-145); Total Protein 7.5 g/dL (6.5-8.0)
[2024-08-03 16:44] LABS: Prothrombin Time 11.2 SEC (10.9-12.4)
[2024-08-03 17:06] LABS: HCG Quantitative < 2 mIU/mL
[2024-08-03 17:20] LABS: Alkaline Phosphatase 54 U/L (39-117)
[2024-08-03] MEDS: Ibuprofen 600 MG TABLET PO (18:51)
[2024-08-03] MEDS: oxyCODONE HCl Immed Release 5 MG TABLET PO (18:52)
[2024-08-03 19:05] VITALS: BP 171/93; PULSE 77; RESP 18; TEMP 36.5; O2SAT 99
== END 2024-08-03 19:05 | disposition home or self-care (01) ==
PROVIDERS: Nurse Practitioner Family; Emergency Provider Emergency Medicine; PCP Internal Medicine
DX: S70.11XA Contusion of right thigh, initial encounter (principal); W22.09XA Striking against other stationary object, initial encounter; Y93.23 Activity, snow (alpine) (downhill) skiing, snowboarding, sledding, tobogganing and snow tubing; Y92.9 Unspecified place or not applicable; Y99.9 Unspecified external cause status; M25.561 Pain in right knee; M79.651 Pain in right thigh; I10 Essential (primary) hypertension
CPT/HCPCS: 36415; 72170; 73552; 73564; 80048; 80076; 84702; 85025; 85610; 96374; 96375; 99283; 99284; J2270; J2405

== ENCOUNTER → 2024-08-03 15:27 | Outpatient (BNV) | payer BC, SELFPAY | PROVIDERS: Emergency Provider Emergency Medicine; PCP Internal Medicine; Visit Provider Radiology Diagnostic Radiology | DX: M25.561 Pain in right knee (principal); M79.651 Pain in right thigh; R10.2 Pelvic and perineal pain | CPT/HCPCS: 72170; 73552; 73564 ==

== ENCOUNTER 2024-08-18 08:03 | Outpatient (REF) | payer BC, SELFPAY ==
[2024-08-18 08:56] LABS: Influenza A PCR NEGATIVE (Negative); Influenza B PCR NEGATIVE (Negative); Resp Syncy Virus RNA Qual PCR NEGATIVE (Negative); SARS COV2 PCR INHOUSE NEGATIVE (Negative)
== END 2024-08-18 08:04 | disposition home or self-care (01) ==
LOC: HO.LAB 08:03
PROVIDERS: PCP Internal Medicine; Visit Provider Internal Medicine
DX: J45.909 Unspecified asthma, uncomplicated (principal)
CPT/HCPCS: 0241U

== ENCOUNTER 2024-10-31 09:09 | Outpatient (REF) | payer BC, SELFPAY ==
[2024-10-31 09:22] LABS: MANUAL DIFF FLAG NO
[2024-10-31 10:07] LABS: Basophils Absolute Auto 0.1 X10*3/uL (0.0-0.2); Basophils Percent Auto 0.6 % (0-2); Eosinophils Absolute Auto 0.2 X10*3/uL (0.0-0.4); Hematocrit 41.5 % (37.0-47.0); Hemoglobin 13.8 g/dl (12.0-16.0); Imm Gran Abs Auto 0.02 X10*3/uL (0.00-0.03); Imm Gran Pct Auto 0.2 % (0.0-0.4); Lymphocytes Absolute Auto 2.3 X10*3/uL (1.2-4.9); Lymphocytes Percent Auto 27.4 % (20-40); Mean Corpuscular HGB Conc 33.3 g/dl (31.0-35.0); Mean Corpuscular Hemoglobin 27.5 pg (27.0-33.0); Mean Corpuscular Volume 82.8 fL (80.0-98.0); Monocytes Absolute Auto 0.5 X10*3/uL (0.1-1.2); Monocytes Percent Auto 5.5 % (2-11); Neutrophils Absolute Auto 5.4 x10*3/uL (2.0-8.3); Neutrophils Percent Auto 64.3 % (45-73); Platelet Count 336 X10*3/uL (160-400); Red Blood Count 5.01 X10*6/uL (4.20-5.50); Red Cell Distribution Width 13.4 % (11.0-16.0); White Blood Count 8.4 X10*3/uL (4.8-10.8)
[2024-10-31 10:17] LABS: Estimated Average Glucose 209 mg/dL; Hemoglobin A1C 265.4772 umol/L; Hemoglobin A1c % 8.9 % (<6.0); Total Hemoglobin (HGBA1C) 3573.6893 umol/L
[2024-10-31 11:09] LABS: Alanine Aminotransferase 40 U/L (0-31); Albumin Level 4.1 g/dL (3.5-5.0); Anion Gap 15 (12-20); Aspartate Amino Transferase 25 U/L (5-31); Bilirubin Total 0.4 mg/dL (0.0-1.0); Blood Urea Nitrogen 11 mg/dL (9-16); Calcium 9.1 mg/dL (8.4-10.2); Carbon Dioxide 24 mmol/L (22-29); Chloride 104 mmol/L (96-108); Cholesterol 205 mg/dL (<200); Estimated Glomerular Filt Rate > 60; Glucose Random 179 mg/dL (60-115); HDL Cholesterol 36 mg/dL (>40); LDL Cholesterol Calculated 147 mg/dL (<100); Potassium 3.7 mmol/L (3.3-5.1); Sodium 139 mmol/L (135-145); Total Protein 7.1 g/dL (6.5-8.0); Triglycerides 114 mg/dL (<150)
[2024-10-31 11:25] LABS: TSH reflex Free T4 2.03 uIU/mL (0.32-4.0); Vitamin D 25-OH Total 35.2 ng/mL (>30)
[2024-10-31 15:09] LABS: Alkaline Phosphatase 58 U/L (39-117)
== END 2024-10-31 09:10 | disposition home or self-care (01) ==
LOC: HO.LAB 09:09
PROVIDERS: PCP Internal Medicine
DX: Z00.00 Encounter for general adult medical examination without abnormal findings (principal); Z13.1 Encounter for screening for diabetes mellitus; Z13.29 Encounter for screening for other suspected endocrine disorder; Z13.220 Encounter for screening for lipoid disorders; E55.9 Vitamin D deficiency, unspecified; Z13.6 Encounter for screening for cardiovascular disorders
CPT/HCPCS: 36415; 80053; 80061; 82306; 83036; 84443; 85025

== ENCOUNTER 2024-11-27 15:06 | Outpatient (REF) | payer BC, SELFPAY ==
[2024-11-27 15:13] LABS: Appearance Urine Clear; Color Urine Yellow; Glucose Urine UA Negative (Negative); Leukocyte Esterase Urine Negative (Negative); Nitrite Urine Negative (Negative); Specific Gravity - Urine 1.025 (1.005-1.025); Urine Blood Negative (Negative); Urine Ketones Negative (Negative); Urine Protein Negative (Neg-Trace)
[2024-11-27 15:27] LABS: Bacteria Urine None Seen (None Seen); Hyaline Casts Urine 0-2 /LPF (0-2); RBC Urine 0-2 /HPF (0-2); Squamous Epithelial Cell Urine 0-2 /HPF (0-2); UACC Culture Trigger NO; WBC Urine 0-5 /HPF (0-5)
[2024-11-27 15:28] LABS: Transitional Epi Cells Urine Present
[2024-11-27 15:57] LABS: Creatinine Urine 133.11 mg/dL
== END 2024-11-27 15:07 | disposition home or self-care (01) ==
LOC: HO.LNP 15:06
PROVIDERS: Visit Provider Internal Medicine
DX: Z00.00 Encounter for general adult medical examination without abnormal findings (principal); R73.09 Other abnormal glucose
CPT/HCPCS: 81001; 82043; 82570

== ENCOUNTER 2025-04-17 08:19 | Outpatient (REF) | payer BC, SELFPAY | END 2025-04-17 08:20 | disposition home or self-care (01) | LOC: HO.MAMMO 08:19 | PROVIDERS: PCP Internal Medicine; Visit Provider Internal Medicine | DX: Z12.31 Encounter for screening mammogram for malignant neoplasm of breast (principal) | CPT/HCPCS: 77063; 77067 ==

== ENCOUNTER → 2025-04-17 08:30 | Outpatient (BNV) | payer BC, SELFPAY | PROVIDERS: PCP Internal Medicine; Visit Provider Internal Medicine | DX: Z12.31 Encounter for screening mammogram for malignant neoplasm of breast (principal) | CPT/HCPCS: 77063; 77067 ==